=== PATIENT | female | born 1965 | race Caucasian/White ===

== ENCOUNTER 2021-04-20 11:10 | Emergency (ER) | payer OTHER, BC ==
[2021-04-20 11:21] VITALS: BP 122/84; PULSE 72; TEMP 98.3; BMI 26.5
== END 2021-04-20 11:41 | disposition home or self-care (01) ==
LOC: FER 11:10
DX: S91.301A Unspecified open wound, right foot, initial encounter (principal)
CPT/HCPCS: 99281-25